=== PATIENT | male | born 1965 | race Caucasian/White ===

== ENCOUNTER → 2016-10-31 | Outpatient (CLI) | payer BC ==
[2016-10-31 09:50] LABS: BASO % 0.3 %; BASO ABS # 0.02 K/uL (0-0.2); COMPLETE YES; EOS % 0.6 %; HEMATOCRIT 44.4 % (42-52); IG% 0.6 %; LYMPH % 27.2 %; LYMPH ABS # 1.83 K/uL (1.2-3.4); MEAN CELL VOLUME 94.1 fL (80-100); MEAN CORPUSCULAR HEMOGLOBIN 33.3 pg (25-34); MEAN CORPUSCULAR HGB CONC 35.4 g/dl (32-36); MEAN PLATELET VOLUME 9.5 fL (7.4-10.4); MONO % 6.4 %; NEUT % 64.9 %; PLATELET COUNT 307 K/uL (130-400); RED BLOOD COUNT 4.72 M/uL (4.7-6.1); WHITE BLOOD COUNT 6.72 K/uL (4.8-10.8)
[2016-10-31 09:54] LABS: URINE APPEARANCE CLEAR (CLEAR); URINE BILIRUBIN NEG (NEG); URINE COLOR YELLOW; URINE EPITHELIAL CELL AUTO 0-5 /lpf (0-5); URINE NITRITE NEG (NEG); URINE SPECIFIC GRAVITY 1.022 (1.000-1.030); UROBILINOGEN NEG (NEG); ZZUR CULT IF INDIC CLEAN CATCH NO
[2016-10-31 10:02] LABS: MANUAL MICROSCOPIC REQUIRED? NO; REVIEW REQ? NO
== END | disposition home or self-care (01) ==
LOC: C.LAB 09:24
PROVIDERS: ATTEND Family Medicine
DX: Z00.00 Encounter for general adult medical examination without abnormal findings (principal); E78.5 Hyperlipidemia, unspecified

== ENCOUNTER → 2017-11-07 | Outpatient (CLI) | payer BC ==
[2017-11-07 11:08] LABS: BASO % 0.2 %; BASO ABS # 0.01 K/uL (0-0.2); EOS % 0.9 %; EOS ABS # 0.05 K/uL (0-0.5); HEMATOCRIT 43.1 % (42-52); HEMOGLOBIN 14.9 g/dL (14.0-18.0); IG# 0.03 K/uL (0.00-0.02); LYMPH ABS # 1.81 K/uL (1.2-3.4); MEAN CELL VOLUME 96.2 fL (80-100); MEAN CORPUSCULAR HEMOGLOBIN 33.3 pg (25-34); MEAN CORPUSCULAR HGB CONC 34.6 g/dl (32-36); MEAN PLATELET VOLUME 9.7 fL (7.4-10.4); MONO % 7.5 %; MONO ABS # 0.44 K/uL (0.11-0.59); NEUT % 59.9 %; NEUT ABS # 3.49 K/uL (1.4-6.5); PLATELET COUNT 302 K/uL (130-400); RED CELL DISTRIBUTION WIDTH CV 12.5 % (11.5-14.5); RED CELL DISTRIBUTION WIDTH SD 43.6 fL (36.4-46.3); WHITE BLOOD COUNT 5.83 K/uL (4.8-10.8)
[2017-11-07 11:30] LABS: ALBUMIN 3.8 gm/dl (3.4-5.0); ALT/SGPT 27 U/L (12-78); AST/SGOT 16 U/L (15-37); BLOOD UREA NITROGEN 15 mg/dl (7-18); CALCIUM 8.6 mg/dl (8.5-10.1); CARBON DIOXIDE 29 mmol/L (21-32); CHOLESTEROL 182 mg/dl (0-200); CREATININE 0.95 mg/dl (0.60-1.40); GLUCOSE 83 mg/dl (70-99); POTASSIUM 4.3 mmol/L (3.5-5.1); SODIUM 142 mmol/L (136-145)
[2017-11-07 11:35] LABS: ALKALINE PHOSPHATASE 71 U/L (45-117); LDL CHOLESTEROL CALCULATED 118 mg/dl; TOTAL PROTEIN 6.7 gm/dl (6.4-8.2)
== END | disposition home or self-care (01) ==
LOC: C.LABBC 07:42
PROVIDERS: ATTEND Physician Assistant Medical
DX: E78.5 Hyperlipidemia, unspecified (principal); Z13.0 Encounter for screening for diseases of the blood and blood-forming organs and certain disorders involving the immune mechanism; Z12.5 Encounter for screening for malignant neoplasm of prostate

== ENCOUNTER 2022-12-03 08:48 | Observation (INO) ==
--- NOTE | 2022-11-18 13:22 | PAT Medication Instructions ---
Medication Instructions Date of Service November 18, 2022 Home Medications Medication Instructions Recorded tramadol 50 mg tablet 50 mg PO TID PRN pain #30 tabs 11/08/22 Men's 50 Plus Multivitamin 1 tab PO QAM aspirin-caffeine 500 mg-32.5 mg tablet ([employer] Back and Body) 1 tab PO DIRECTED aspirin 81 mg chewable tablet ([employer] Chewable Low Dose Aspirin) 81 mg PO DAILY PRN Mild Pain tramadol 50 mg tablet 50 mg PO TID PRN pain ASK your prescriber and surgeon aspirin-caffeine 500 mg-32.5 mg tablet ([employer] Back and Body) 1 tab PO DIRECTED aspirin 81 mg chewable tablet ([employer] Chewable Low Dose Aspirin) 81 mg PO DAILY PRN Mild Pain DO NOT take the morning of surgery Men's 50 Plus Multivitamin 1 tab PO QAM Take morning of surgery With a small sip of water, OTHERWISE NOTHING TO EAT OR DRINK AFTER MIDNIGHT: tramadol 50 mg tablet 50 mg PO TID PRN pain (if needed) Take evening before surgery tramadol 50 mg tablet 50 mg PO TID PRN pain (if needed) Other Notes If you have any questions please call us at [phone] or [phone] or [phone] or [phone]
--- NOTE | 2022-11-21 13:55 | Anesthesiology Consultation ---
Date of Service November 21, 2022 Assessment & Plan (1) Encounter for pre-operative examination: Chart Review Chart Review: Acceptable Risk for Surgery and Patient seen in Pre Admission Testing Teaching & Discussion Pre-Anesthesia Teaching/Discussion Notes: Instructed NPO after midnight before surgery, except medications with 15 cc of water. Medication instructions provided according to the PAT guidelines. History Surgery Operation Date: 12/03/22 10:35 Proposed Procedures p L3-L4 Posterior Lumbar Decompression - Osmar Saxena MD Height/Weight Height: 5 ft 5 in Weight: 77 kg Allergies Allergy/AdvReac Type Severity Reaction Status Date / Time No Known Drug Allergies Allergy Unknown Verified 11/18/22 12:58 Medications Home Medications Medication Instructions Recorded Confirmed Last Taken curylzkvoosf-hxf-tsszr acid-vit 1 tab PO QAM 12/16/19 11/18/22 Unknown K-lycop 400 mcg-20 mcg-370 mcg tablet (Men's 50 Plus Multivitamin) aspirin-caffeine 500 mg-32.5 mg 1 tab PO DIRECTED 05/22/22 11/18/22 Unknown tablet (Sag[facility]ario Back and Body) aspirin 81 mg chewable tablet 81 mg PO DAILY PRN Mild Pain 09/09/22 11/18/22 09/09/22 07:00 (S[facility]ario Chewable Low Dose Aspirin) (Scale Score 1-4) 162 mg tramadol 50 mg tablet 50 mg PO TID PRN pain #30 tabs 11/08/22 11/18/22 Unknown Past Medical History Medical History Closed fracture of iliac wing of pelvis (~2019) resolved per pt, still has some pain Decreased hearing of left ear Degenerative joint disease of cervical spine Dyslipidemia 10 year ASCVD risk 7.8% 07/2021. Declined statins. Started TLCs with f/u lipid check in 6 months. Elevated blood pressure reading without diagnosis of hypertension Lumbar degenerative disc disease Patient denies h/o stroke, seizures, heart attack, heart failure, DM, blood cl ots or blood transfusions. Exercise / Class Metabolic Activity II 4-5 Yardwork/Stairs/Walk up hill (denies chest discomfort or shortness of breath with 1 FOS) Past Family History Family History Aunt Cancer Denies family history of Ovarian cancer Prostate cancer Diabetes Myocardial infarction Breast cancer Lung cancer Colorectal cancer Hypertension Stroke Past Surgical History Surgical History H/O colonoscopy 11/2019 repeat 5 yrs H/O inguinal hernia repair History of fusion of cervical spine (~2000) ROM WNL History of tooth extraction S/P epidural steroid injection Past Anesthesia History No Hx of Anesthesia Complications and No Family Hx of Anesthesia Complications History of PONV No Hx of PONV and No Hx of Motion Sickness Social History Smoking Status: Never smoker Do You Dip or Chew Tobacco: No Hx Alcohol Use: Yes Alcohol type: beer, wine and hard liquor alcohol intake frequency: a few times a week Hx Substance Use: No substance use type: does not use Review of Systems Occasional snoring, denies witnessed apneas. Patient denies chest pain, shortness of breath, dyspnea on exertion, reflux, fever, chills, cough, wheezing, or palpitations. Physical Exam Vital Signs Vitals BP 134/82 P 76 TEMP 98.5 SP02 97% on RA RESP 17 Physical Mildly limited cervical extension range of motion without pain TMD 3.5 finger breadths Mallampati Score 2 Dentition: multiple caps/crowns; denies chipped or loose teeth, implants or bridges Lungs: normal respiratory effort. Clear throughout to auscultation, no adventitious breath sounds Cardiac: regular rate and rhythm, no murmurs noted Carotid arteries: negative bruit bilat Lab Results Anesthesia Preop Results Results Anesthesia Widget: WBC 6.36 K/ul (4.8-10.8) 11/21/22 Hgb 14.9 g/dl (14.0-18.0) 11/21/22 Hct 42.8 % (42.0-52.0) 11/21/22 Plt 322 K/uL (130-400) 11/21/22 Na 140 mmol/L (136-145) 11/21/22 K 4.2 mmol/L (3.5-5.1) 11/21/22 Cl 105 mmol/L (98-107) 11/21/22 CO2 31 mmol/L (21-32) 11/21/22 BUN 15 mg/dl (6-23) 11/21/22 Creat 0.95 mg/dl (0.6-1.4) 11/21/22 Glucose Level 98 mg/dl (70-99(Fasting)) 11/21/22 PT 10.6 Seconds (9.0-12.0) 11/21/22 PTT 28.2 Seconds (21.0-31.0) 11/21/22 INR 1.0 (0.9-1.1) 11/21/22 Blood Type O Positive 11/21/22 Antibody Screen NEGATIVE 11/21/22 Testing Electrocardiogram Date: 11/21/22 NSR, rate 68 bpm Chest X-Ray Date: 11/21/22 No lines and tubes are seen. The cardiomediastinal silhouette is normal. The lungs are clear. No evidence of pleural effusion or pneumothorax. Healed left rib fractures are noted. IMPRESSION: No acute chest disease. COVID-19 Risk Screen Screening Information COVID-19 Screen Date: 11/21/22 Exposure 21 Days Family/Household +COVID Last 21 Days: No Exposure 10 Days Any COVID Exposure Last 10 Days: No Symptoms Last 10 Days Experienced COVID Sx Last 10 Days: No + COVID 0-90 Days COVID + in Last 0-90 Days: No
[~2022-12-03 08:48] MED LIST: LR 15ML/HR IV SCH; LR 60ML/HR IV SCH; MIDAZOLAM HCL 1 MG/ML 2ML VIAL ONE; ceFAZolin 2000MG 2,000 MG/15 ML SYR IV SCH; fentaNYL citrate PF 100 MCG/2 ML VIAL ONE
[2022-12-03] MEDS ORDERED: ROCURONIUM BROMIDE 10 MG/ML 5 ML VIAL IV ONE ×5 (08:52)
[2022-12-03] MEDS ORDERED: DEXAMETHASONE SOD INJ 4 MG/ML VIAL ONE ×2 (08:52)
[2022-12-03] MEDS ORDERED: ONDANSETRON INJ 2 MG/ML 2 ML VIAL ONE (08:52)
[2022-12-03] MEDS ORDERED: LIDOCAINE 2% MPF LOCAL 5 ML VIAL INFIL ONE (08:52)
[2022-12-03] MEDS ORDERED: PROPOFOL IV EMULSION 10 MG/ML 20 ML VIAL IV ONE (08:52)
[2022-12-03] MEDS ORDERED: ONDANSETRON INJ 2 MG/ML 2 ML VIAL IV PRN ×2 (11:01→18:22)
[2022-12-03] MEDS ORDERED: PROMETHAZINE HCL 12.5 MG in SODIUM CHLORIDE 0.9% 50 ML IV PRN ×2 (11:01→18:22)
[2022-12-03] MEDS ORDERED: ePHEDrine sulfate 50 MG/ML AMP IV PRN (11:01)
[2022-12-03] MEDS ORDERED: HYDROmorphone INJ 2 MG/ML SYR/VIAL IV PRN (11:01)
[2022-12-03] MEDS ORDERED: ATROPINE SULFATE 0.1 MG/ML 10ML SYR IV PRN (11:01)
--- NOTE | 2022-12-03 12:56 | History & Physical Bridge Note ---
Date of Service December 03, 2022 History & Physical Bridge Note I have examined the patient, reviewed the History & Physical and in the interval since the performance of the History & Physical I have noted the following changes of clinical significance: no changes noted
[2022-12-03] MEDS ORDERED: GELATIN SPONGE SZ 100 ONE (13:21)
[2022-12-03] MEDS ORDERED: VANCOMYCIN HCL 1000MG/20ML VIAL ONE (13:21)
[2022-12-03] MEDS ORDERED: THROMBIN 5000 UNITS KIT ONE (13:21)
[2022-12-03] MEDS ORDERED: BUPIVACAINE 0.5 % 5 MG/1 ML MPF 30ML VIAL ONE (14:03)
[2022-12-03] MEDS ORDERED: fentaNYL citrate PF 100 MCG/2 ML VIAL ONE (14:18)
[2022-12-03] MEDS ORDERED: FLOSEAL HEMOSTATIC MATRIX 10ML TOP ONE (14:30)
[2022-12-03] MEDS ORDERED: SUGAMMADEX SODIUM 200 MG/2 ML VIAL IV ONE (16:05)
--- NOTE | 2022-12-03 16:33 | Fluoroscopy Report ---
INTRAOPERATIVE RADIOGRAPHS CLINICAL HISTORY: L3-L5 spinal fusion. Fluoro time: 27 seconds. Exposure: 15.47 mGy FINDINGS: 2 spot fluoroscopic views of the lumbar spine are presented. Surgical probes project globe cleaner iorly at the L3-L4 disc space. IMPRESSION: Intraoperative images from lumbar spinal fusion surgery as above. Electronically signed by: Negro Shah M.D. 12/03/2022 4:31 PM
[2022-12-03] MEDS: fentaNYL citrate PF 100 MCG/2 ML VIAL IV PRN ×2 (16:40→16:45)
[2022-12-03] MEDS ORDERED: KETOROLAC 30 MG/ML VIAL IV PRN (16:56)
--- NOTE | 2022-12-03 16:56 | Post Operative Brief Note ---
PG Immediate Post Op with CF Date of Surgery December 03, 2022 Pre & Post Diagnosis Operation Date: 12/03/22 10:35 Pre-Op Diagnosis: Lumber Degenerative Disc Disorder Post-Op Diagnosis: Lumber Degenerative Disc Disorder I identified the patient and participated in the time-out.: Yes Procedure Operation Date: 12/03/22 10:35 Actual Procedures p L3-L4 Posterior Lumbar Decompression(Not Applicable) - Osmar Saxena MD Surgeon Osmar Saxena MD Tool Sharpener none Estimated Blood Loss 50 Findings Consistent with Post-Op Diagnosis stenosis Specimens Specimen Description: None per surgeon Complications none
[2022-12-03] MEDS ORDERED: KETOROLAC 30 MG/ML VIAL IV ONE (17:09)
--- NOTE | 2022-12-03 17:11 | Anesthesiology Progress Note ---
Date of Service December 03, 2022 Anesthesia Post Procedure Vital Signs Vital Signs: Temp Pulse Resp BP BP Pulse Ox O2 Del Method 12/03/22 17:05 65 17 129/84 95 Room Air 12/03/22 16:55 75 17 156/77 H 99 Oxymask 12/03/22 16:45 73 19 131/67 98 Oxymask 12/03/22 16:35 85 20 150/67 H 97 Oxymask 12/03/22 16:27 36.3 C L 62 20 134/68 97 Oxymask 12/03/22 09:25 36.5 C 81 22 158/97 H 159/101 H 97 Room Air O2 Flow Rate 12/03/22 17:05 12/03/22 16:55 5 12/03/22 16:45 5 12/03/22 16:35 5 12/03/22 16:27 5 12/03/22 09:25 Transfer of Care Handoff Completed per policy Notes Mental Status: alert / awake / arousable and participated in evaluation Patient Amnestic to Procedure: Yes Nausea / Vomiting: adequately controlled Pain: adequately controlled Airway Patency, RR, SpO2: stable & adequate BP & HR: stable & adequate Hydration State: stable & adequate Anesthetic Complications: no major complications apparent
[2022-12-03] MEDS ORDERED: ACETAMINOPHEN 500 MG TAB PO PRN (18:22)
[2022-12-03] MEDS ORDERED: DO NOT ADMINISTER FLU VACCINE PRN (18:22)
[2022-12-03] MEDS ORDERED: MAGNESIUM HYDROXIDE SUSP 30 ML UDC PO PRN (18:22)
[2022-12-03] MEDS ORDERED: SOD PHOSPHATE/SOD BIPHOSPHATE ENEMA 132 ML BTL PR PRN (18:22)
[2022-12-03] MEDS ORDERED: METOCLOPRAMIDE HCL INJ 5 MG/ML 2 ML VIAL IV PRN (18:22)
[2022-12-03] MEDS ORDERED: HYDROmorphone INJ 0.5 MG/0.5 ML SYR IV PRN (18:22)
[2022-12-03] MEDS ORDERED: LORazepam 2 MG/1 ML VIAL IV PRN (18:22)
[2022-12-03] MEDS ORDERED: bisacodyL 10 MG SUPP PR PRN (18:22)
[2022-12-03] MEDS ORDERED: oxyCODONE/ACETAMINOPHEN 5mg/325mg TAB PO PRN (18:22)
[2022-12-03] MEDS ORDERED: DO NOT ADMINISTER PNEUMOCOCCAL VACCINE PRN (18:22)
[2022-12-03] MEDS ORDERED: ACETAMINOPHEN 1,000 MG/100 ML VIAL IV PRN (18:22)
[2022-12-03] MEDS ORDERED: ASPIRIN 81 MG CHEW PO PRN (18:22)
[2022-12-03] MEDS ORDERED: FAMOTIDINE 20 MG TAB PO PRN (18:22)
[2022-12-03] MEDS ORDERED: LORazepam 0.5 MG TAB PO PRN (18:22)
[2022-12-03] MEDS ORDERED: traMADol HCL 50 MG TABLET PO PRN (18:22)
[2022-12-03] MEDS ORDERED: diphenhydrAMINE Capsule 25 MG CAP PO PRN (18:22)
[2022-12-03] MEDS ORDERED: NALOXONE HCL 0.4 MG/1 ML VIAL/CARP IV PRN (18:22)
[2022-12-03] MEDS ORDERED: ONDANSETRON 4 MG OD TAB PO PRN (18:22)
[2022-12-03] MEDS ORDERED: LACTATED RINGER'S 1,000 ML IV SCH (18:22)
[2022-12-03] MEDS ORDERED: NON-FORMULARY MEDICATION (Aspirin-Caffeine [Bayer Back And Body] 500-32.5 mg Tablet) PO PRN (18:22)
[2022-12-03] MEDS ORDERED: ALUMINUM/MAGNESIUM SUSP 30 ML UDC PO PRN (18:22)
[2022-12-03] MEDS ORDERED: hydrOXYzine HCl 25 MG TAB PO PRN (18:22)
[2022-12-03] MEDS: KETOROLAC 30 MG/ML VIAL IV SCH ×2 (18:47→23:31)
--- NOTE | 2022-12-03 18:54 | Anesthesiology Progress Note ---
Date of Service December 03, 2022 Anesthesia Post Procedure Vital Signs Vital Signs: Temp Pulse Resp BP BP Pulse Ox O2 Del Method 12/03/22 18:22 36.9 C 68 16 127/82 94 Room Air 12/03/22 17:45 65 14 135/96 93 Room Air 12/03/22 17:15 36.5 C 65 17 138/84 95 Room Air 12/03/22 17:05 65 17 129/84 95 Room Air 12/03/22 16:55 75 17 156/77 H 99 Oxymask 12/03/22 16:45 73 19 131/67 98 Oxymask 12/03/22 16:35 85 20 150/67 H 97 Oxymask 12/03/22 16:27 36.3 C L 62 20 134/68 97 Oxymask 12/03/22 09:25 36.5 C 81 22 158/97 H 159/101 H 97 Room Air O2 Flow Rate 12/03/22 18:22 12/03/22 17:45 12/03/22 17:15 12/03/22 17:05 12/03/22 16:55 5 12/03/22 16:45 5 12/03/22 16:35 5 12/03/22 16:27 5 12/03/22 09:25 Transfer of Care Handoff Completed per policy Notes Mental Status: alert / awake / arousable Patient Amnestic to Procedure: Yes Nausea / Vomiting: adequately controlled Pain: adequately controlled Airway Patency, RR, SpO2: stable & adequate BP & HR: stable & adequate Hydration State: stable & adequate Anesthetic Complications: no major complications apparent
[2022-12-03] MEDS ORDERED: DOCUSATE SODIUM/SENNA 50/8.6MG TAB PO SCH (21:00)
[2022-12-03] MEDS: CYCLOBENZAPRINE HCL 10 MG TAB PO SCH (21:37)
[2022-12-03] MEDS: ceFAZolin 1000MG 1,000 MG/7.5 ML SYR IV SCH (23:31)
[2022-12-04] MEDS ORDERED: POLYETHYLENE (MIRALAX) 17 GM PACK PO SCH (06:00)
[2022-12-04] MEDS: KETOROLAC 30 MG/ML VIAL IV SCH ×2 (06:27→11:22)
[2022-12-04] MEDS: ceFAZolin 1000MG 1,000 MG/7.5 ML SYR IV SCH (06:28)
[2022-12-04] MEDS: CYCLOBENZAPRINE HCL 10 MG TAB PO SCH (06:28)
[2022-12-04] MEDS ORDERED: MULTIVITAMIN TAB PO SCH (09:00)
--- NOTE | 2022-12-04 09:06 | Orthopedic Progress Note ---
Date of Service December 04, 2022 Subjective Patient having some incisional pain but notes lower extremity symptoms are improved status post surgery. No other issues. Incision site unremarkable, motor intact. Plan: We will discharge home today follow-up in 2 weeks, will provide some pain medication, tramadol, can take acetaminophen and/or anti-inflammatories. Review of Systems All systems reviewed & are unremarkable except as noted in HPI & below. Physical Exam . Results & Data Results & Data Laboratory Results . Diagnostic Findings . PG Care Time/CCT Total # of Minutes Spent Total Time Spent with Patient: Total time spent is greater than 50% in coordination of care (as documented) at patient's floor/unit and/or counseling patient: Coding Level of Care Code 58073 Post Operative Follow-Up Diagnoses
--- NOTE | 2022-12-04 09:15 | Discharge Summary ---
Date of Service December 04, 2022 Principal Diagnosis Same as "Discharge Diagnosis" noted below under Discharge Instructions. Discharge Exam . Discharge Data Procedures Performed Operation Date: 12/03/22 10:35 Actual Procedures p L3-L4 Posterior Lumbar Decompression(Not Applicable) - Osmar Saxena MD Ordered Studies 12/03/22 10:35 FL lumbar spine 2-3V Routine PG Care Time/CCT Total # of Minutes Spent Total Time Spent with Patient: Total time spent is greater than 50% in coordination of care (as documented) at patient's floor/unit and/or counseling patient: Discharge Plan Discharge Items Patient Disposition: Home - Self-Care Reason For Visit: Lumber Degenerative Disc Disorder Discharge Diagnosis: Lumbar stenosis Activity: Per Instructions section Lifting: Gradually increase as tolerated Bathing: May shower/bathe in 3 days Non-emergency contact: Primary Care Provider and Surgeon Call non-emergency contact if: your pain is worsening, your temperature is above 101.5, your wound has increased redness and your wound has increased drainage Follow-up/Referrals: Wade Banks DO [Primary Care Provider] - Diet: Regular Ambulatory Orders: Basic Metabolic Panel (Routine) Timeframe: 1 Day Location: Determined by Patient Ordered By: Sultana Buckley Attending Provider Instructions: Maintain dressing for 1-2 more days, shower in 3 days. Limit any bending lifting twisting, follow-up in 2 weeks. Pending Studies at Discharge: No Stand-Alone Forms: [facility] [address], Smoking Cessation Medications and DC Order Prescriptions: New tramadol 50 mg tablet 50 mg PO Q6H PRN (Reason: pain) Qty: 30 0RF Continued Men's 50 Plus Multivitamin 400-20-370 mcg Tablet 1 tab PO QAM [facility] Back and Body 500-32.5 mg Tablet 1 tab PO DIRECTED PRN (Reason: Pain) naproxen sodium [Aleve] 220 mg Tablet 440 mg PO Q8H PRN (Reason: Pain) aspirin [Sag[facility]ario Chewable Aspirin] 81 mg Tablet,Chewable 81 mg PO DAILY PRN (Reason: Mild Pain (Scale Score 1-4)) Discontinued tramadol 50 mg tablet 50 mg PO TID PRN (Reason: pain) Qty: 30 0RF Rx Instructions: In addition to the tramadol, take acetaminophen either regular strength or extra, 2 pills. Discharge Orders: Discharge Order (Routine); Ordered 12/04/22 Ordered By: Osmar Saxena Admission Data Admit Date/Time: 12/03/22 16:49 Attending Provider: Osmar Saxena Admit Provider: Osmar Saxena Primary Care Provider: Wade Banks
--- NOTE | 2022-12-04 13:56 | Operative Report ---
PG Post Operative Report Pre & Post Diagnosis Operation Date: 12/03/22 10:35 Pre-Op Diagnosis: Lumber Degenerative Disc Disorder Post-Op Diagnosis: Lumber Degenerative Disc Disorder I identified the patient and participated in the time-out.: Yes Procedure Operation Date: 12/03/22 10:35 Actual Procedures p L3-L4 Posterior Lumbar Decompression(Not Applicable) - Osmar Saxena MD Surgeon Osmar Saxena MD Straddle Truck Operator none Estimated Blood Loss 50 Findings Consistent with Post-Op Diagnosis Specimens None Complications none Description of Procedure Patient was taken the operating room and was then placed prone on the Jeff frame, underwent a preprep of the lumbar region. I then brought in fluoroscopy and marked for the area of the incision to be made at the L3-4 level. This was marked, prepped and draped was performed. I then began the procedure the midline incision taken down through subcutaneous tissues and on either side of the spinous processes. From here I then mobilized some of the muscle tissue away from the intended area of the lamina, and we confirmed our position fluoroscopically. At this point once this was completed I then moved to help with the decompression with removing the interspinous ligament and then some of the inferior aspect of the spinous process of L3 to get to the interlaminar region posteriorly. This was then carefully exposed, and then once doing so I then used a high-speed bur to perform bilateral hemilaminotomies across the inferior laminar edge of L3 and across the superior lamina edge of L4, along the medial facets on both sides. Once this was completed I then mobilized some of the thickened ligamentum flavum and this was then removed decompressing out to the lateral recess region on both sides. With the main decompression along the medial aspect facets completed I then mobilized the dural contents on the right side and removed some remaining disc fragments in this region. Inspection revealed the area to be well decompressed, no issues were noted relative to the decompression. Operative site was then irrigated, injected some half percent Marcaine and around the operative area followed by some small amount of Floseal and then vancomycin powder. Closure was then performed with interrupted 0 Vicryl sutures reattaching the supraspinous ligament were available, 2-0 Vicryl sutures and roberto to the skin. Sterile dressing was applied, the patient was taken recovery room satisfied condition. I attest to the content of the Intraoperative Record and any orders documented therein. Any exceptions are noted below.
== END 2022-12-04 11:53 | disposition home or self-care (01) ==
LOC: 3E 08:48 → ASU 08:48